=== PATIENT | female | born 1940 | race Caucasian/White ===

== ENCOUNTER 2020-07-27 05:36 | Inpatient (IN) | payer MEDICARE, OTHER ==
[~2020-07-27] VITALS: Ht 157.5 cm; Wt 76.1 kg
[2020-07-27] MEDS ORDERED: SIMV10TA21 PO (05:45)
[2020-07-27 06:32] LABS: BASO % 0.1 % (0.0-1.0); EOS # 0.1 10^3/uL (0.0-0.5); EOS % 1.1 % (0.0-3.0); HEMATOCRIT 46.1 % (36.0-47.0); HEMOGLOBIN 15.4 g/dl (12.0-15.5); LYMPH # 0.8 10^3/uL (1.5-5.0); MEAN CORPUSCULAR HEMOGLOBIN 30.3 pg (27.0-33.0); MEAN CORPUSCULAR HGB CONC 33.4 g/dl (32.0-36.5); MEAN CORPUSCULAR VOLUME 90.6 fl (80.0-96.0); MONO # 0.8 10^3/uL (0.0-0.8); MONO % 8.9 % (2.0-8.0); NEUTROPHILS # 6.8 10^3/uL (1.5-8.5); NEUTROPHILS % 80.7 % (36.0-66.0); PLATELET COUNT, AUTOMATED 486 10^3/uL (150-450); RED BLOOD COUNT 5.09 10^6/uL (4.00-5.40); WHITE BLOOD COUNT 8.5 10^3/uL (4.0-10.0)
[2020-07-27 07:25] LABS: ALBUMIN 3.6 GM/DL (3.2-5.2); ALT/SGPT 41 U/L (12-78); BILIRUBIN,DIRECT 0.2 MG/DL (0.0-0.2); BLOOD UREA NITROGEN 16 MG/DL (7-18); CARBON DIOXIDE LEVEL 24 MEQ/L (21-32); CHLORIDE LEVEL 110 MEQ/L (98-107); CK-MB VALUE MASS 1.4 NG/ML (<3.6); CPK CREATINE PHOSPHOKINASE 55 U/L (26-192); CREATININE FOR GFR 0.98 MG/DL (0.55-1.30); GLOMERULAR FILTRATION RATE 57.8 (>32); GLUCOSE, FASTING 119 MG/DL (70-100); LIPASE 81 U/L (73-393); MB/CK RELATIVE INDEX 2.55 (< OR =4); POTASSIUM SERUM 4.2 MEQ/L (3.5-5.1); SODIUM LEVEL 141 MEQ/L (136-145); TOTAL PROTEIN 6.5 GM/DL (6.4-8.2); TROPONIN I < 0.02 NG/ML (< 0.10)
[2020-07-27] MEDS ORDERED: ISOVUE-370 76% 100ML VIAL As Ordered ONE (07:30)
--- NOTE | 2020-07-27 08:16 | REPVR ---
PROCEDURE INFORMATION: Exam: CT Cervical Spine Without Contrast Exam date and time: 07/27/2020 8:00 AM Age: 80 years old Clinical indication: Injury or trauma; Fall; Concussion/head injury; Additional info: Loc/hit head TECHNIQUE: Imaging protocol: Computed tomography images of the cervical spine without contrast. Radiation optimization: All CT scans at this facility use at least one of these dose optimization techniques: automated exposure control; mA and/or kV adjustment per patient size (includes targeted exams where dose is matched to clinical indication); or iterative reconstruction. COMPARISON: No relevant prior studies available. FINDINGS: Bones/joints: No acute fracture. Minimal anterolisthesis of C2 on C3 and C4 on C5. Degenerative changes with anterior osteophyte formation, loss of disc spaces, and facet joint arthropathy. Schmorl node formation in the superior endplate of T1. Discs/Spinal canal/Neural foramina: No significant disc protrusion or central spinal canal stenosis. Lungs: Lung apices are normal. Soft tissues: Unremarkable. IMPRESSION: No acute findings. Electronically signed by: Trista Jimenez On 07/27/2020 08:15:36 AM
--- NOTE | 2020-07-27 08:18 | REPVR ---
PROCEDURE INFORMATION: Exam: CT Head Without Contrast Exam date and time: 07/27/2020 8:00 AM Age: 80 years old Clinical indication: Injury or trauma; Fall; Concussion/head injury; Additional info: Loc/hit head TECHNIQUE: Imaging protocol: Computed tomography of the head without contrast. Radiation optimization: All CT scans at this facility use at least one of these dose optimization techniques: automated exposure control; mA and/or kV adjustment per patient size (includes targeted exams where dose is matched to clinical indication); or iterative reconstruction. COMPARISON: No relevant prior studies available. FINDINGS: Brain: Normal. No hemorrhage. Unremarkable white matter. No mass effect. Cerebral ventricles: No ventriculomegaly. Bones/joints: Unremarkable. No acute fracture. Paranasal sinuses: Visualized sinuses are unremarkable. No fluid levels. Mastoid air cells: Visualized mastoid air cells are well aerated. Soft tissues: Mild left parietal soft tissue swelling. IMPRESSION: No intracranial abnormality. Mild left parietal soft tissue swelling. Electronically signed by: Trista Jimenez On 07/27/2020 08:18:09 AM
--- NOTE | 2020-07-27 08:33 | REPVR ---
PROCEDURE INFORMATION: Exam: CT Abdomen And Pelvis With Contrast Exam date and time: 07/27/2020 8:00 AM Age: 80 years old Clinical indication: Abdominal pain; Other: Llq pain TECHNIQUE: Imaging protocol: Computed tomography of the abdomen and pelvis with contrast. Radiation optimization: All CT scans at this facility use at least one of these dose optimization techniques: automated exposure control; mA and/or kV adjustment per patient size (includes targeted exams where dose is matched to clinical indication); or iterative reconstruction. Contrast material: ISOVUE 370; Contrast volume: 75 ml; Contrast route: INTRAVENOUS (IV); COMPARISON: No relevant prior studies available. FINDINGS: Limitations: Examination is limited by motion artifact. Lungs: Mild patchy areas of hyperattenuation in the lung bases. Coronary arteries: Mild coronary artery calcification. Liver: Normal. No mass. Gallbladder and bile ducts: Normal. No calcified stones. No ductal dilation. Pancreas: Normal. No ductal dilation. Spleen: Calcified granuloma in the spleen. Otherwise unremarkable. Adrenal glands: Normal. No mass. Kidneys and ureters: No right hydronephrosis. No left hydronephrosis. Mild left perinephric stranding. No obstructing renal stone. Benign-appearing cyst in the upper pole of right kidney measuring 7 mm. Multiple small hypodense lesions in left kidney measuring up to 3 mm. Stomach and bowel: Unremarkable. No obstruction. No mucosal thickening. Appendix: The appendix is not seen. However, there is no evidence of appendicitis. Intraperitoneal space: Unremarkable. No free air. No significant fluid collection. Vasculature: Mild atherosclerotic disease. No aortic aneurysm. Lymph nodes: Unremarkable. No enlarged lymph nodes. Urinary bladder: Unremarkable as visualized. Reproductive: Uterus is normal. Cyst in the right ovary measuring 4.2 x 4.9 x 5.0 cm. Bones/joints: Moderate degenerative spine. No acute fracture. Soft tissues: Unremarkable. IMPRESSION: 1. Left perinephric stranding without hydronephrosis. Possible recently passed stone versus pyelonephritis. 2. Cyst in the right ovary. Further evaluation with prompt non-emergent ultrasound is recommended to characterize. (Reference: Guicho) 3. Benign-appearing cyst in the upper pole of the right kidney. Multiple small hypodense lesions in the left kidney. No follow-up is necessary. 4. Mild patchy areas of hyperattenuation in the lung bases. Atelectasis versus mild pulmonary edema versus mild pneumonia. COMMENTS: Consistent with the [employer]'s Incidental Findings Committee white paper (J Am Jean Radiol 2018): Any incidental renal lesion less than 1 cm or classified as too small to characterize, or any incidental cystic renal lesion characterized as simple-appearing, is likely benign. No follow-up imaging is recommended for these lesions per consensus recommendations based on imaging criteria. REFERENCES: Guicho et al. Management of Incidental Adnexal Findings on CT and MRI: A White Paper of the ACR Incidental Findings Committee, J Am Jean Radiol. 2019;17(2):248-254. Electronically signed by: Kaitlin Kilgore On 07/27/2020 08:32:40 AM
--- NOTE | 2020-07-27 08:58 | ED PDOC ---
Post-Departure Follow-Up radiology report faxed to Clara Iverson MD July 27, 2020 08:58
[2020-07-27 09:19] LABS: NT-PRO BNP 173 PG/ML (<450)
[2020-07-27] MEDS ORDERED: MORPHINE 4 MG/ML 1ML VIAL/SYRINGE (J2270) IV ONE (09:50)
[2020-07-27] MEDS ORDERED: cefTRIAXone SOD 1 GM in D5W MINI-BAG PLUS 50 ML IV ONE (09:50)
[2020-07-27] MEDS ORDERED: NS 1,000 ML IV ONE (09:55)
--- NOTE | 2020-07-27 10:03 | REP ---
INDICATION: syncope. COMPARISON: None. FINDINGS: The superior mediastinal structures are midline. The cardiac silhouette is unremarkable in size, shape, and position. The diaphragmatic surfaces of the lungs are regular, and the costophrenic angles are clear. The pulmonary new are clear. The imaged osseous structures are intact. IMPRESSION: There is no acute cardiopulmonary disease. <Electronically signed by Kevin Schultz > 07/27/20 0959
--- NOTE | 2020-07-27 10:11 | ECGEPIP ---
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
[2020-07-27] MEDS ORDERED: OMEG10002 PO (10:22)
[2020-07-27] MEDS ORDERED: CALC600T60 PO (10:22)
[2020-07-27] MEDS ORDERED: D31000TA2 PO (10:22)
[2020-07-27] MEDS ORDERED: VITA500C24 PO (10:22)
[2020-07-27] MEDS ORDERED: ACETAMINOPHEN TAB 650MG DOSE (2X325MG) PO PRN (10:35)
[2020-07-27] MEDS ORDERED: MORPHINE 2 MG/ML 1ML VIAL (J2270) IV PRN (10:45)
--- NOTE | 2020-07-27 10:48 | HPEPDOC ---
General Date of Admission 07/27/20 Date of Service: July 27, 2020 Chief Complaint The patient is a 80-year-old female admitted with a reason for visit of General Med Complaint. Source: Patient Exam Limitations: No limitations Timing/Duration: 24 hours History of Present Illness Patient is 80 years old female with past medical history of hyperlipidemia, osteoporosis presents to the hospital with suprapubic pain and frequency in urin ation. Patient stated that yesterday she developed one episode of syncope without any seizure-like activities. She described she had some flashes and then syncopized for a few seconds. Yesterday evening she noticed frequency in urination with suprapubic pain. Patient denied fever, chills, nausea, vomiting diarrhea. In ER patient was found to have no leukocytosis, lactic acid 1.9. UA showed pyuria. CT showed Left perinephric stranding without hydronephrosis. Possible recently passed stone versus pyelonephritis Home Medications Scheduled Ascorbic Acid (Vitamin C) 500 Mg Capsule, 500 MG PO DAILY, (Reported) Calcium Carbonate (Calcium) 600 Mg Tablet, 600 MG PO DAILY, (Reported) Cholecalciferol (Vitamin D3) (Vitamin D3) 1,000 Unit Tablet, 1,000 UNITS PO DAILY, (Reported) [place]-3/Dha/Epa/Fish Oil (Fish Oil 1,000 mg Softgel) 1 Each Capsule, 1,000 MG PO DAILY, (Reported) Simvastatin (Simvastatin) 10 Mg Tablet, 10 MG PO QHS, (Reported) Allergies Coded Allergies: aspirin (Verified Allergy, Unknown, 07/27/20) Past Medical History Medical History Hyperlipidemia, osteoporosis Family History I personally reviewed family history and follow found not pertinent Social History * Smoker: Denies Alcohol: Denies Drugs: denies A-FIB/CHADSVASC A-FIB History Current/History of A-Fib/PAF?: No Current PO Anticoag Therapy: No Review of Systems Constitutional: Denies: Chills, Fever Eyes: Denies: Pain ENT: Denies: Head Aches Skin: Denies: Rash, Lesions Pulmonary: Denies: Dyspnea Cardiovascular: Denies: Chest Pain Gastrointestinal: Denies: Nausea, Vomiting Genitourinary: Reports: Dysuria, Frequency Hematologic: Denies: Bruising Endocrine: Denies: Polydipsia, Polyphagia Musculoskeletal: Denies: Neck Pain, Back Pain Neurological: Denies: Weakness Psych: Reports: Mood Normal Physical Examination General Exam: Positive: Alert, Cooperative Eye Exam: Positive: PERRLA ENT Exam: Positive: Atraumatic Neck Exam: Positive: Supple; Negative: JVD Chest Exam: Positive: Clear to auscultation Heart Exam: Positive: Rate Normal Abdomen Exam: Positive: Normal bowel sounds, Tenderness (suprapubic) Extremity Exam: Negative: Clubbing, Cyanosis Skin Exam: Positive: Nl turgor and temperature Neuro Exam: Positive: Normal Gait Psych Exam: Positive: Mental status NL Vital Signs Vital Signs Date Time Temp Pulse Resp B/P (MAP) Pulse Ox O2 Delivery O2 Flow Rate FiO2 07/27/20 10:11 16 07/27/20 09:05 98.1 81 163/83 (109) 98 Room Air Laboratory Data Labs 24H Laboratory Tests 2 07/27/20 06:17: Immature Granulocyte % (Auto) 0.2, Neutrophils (%) (Auto) 80.7H, Lymphocytes (%) (Auto) 9.0L, Monocytes (%) (Auto) 8.9H, Eosinophils (%) (Auto) 1.1, Basophils (%) (Auto) 0.1, Neutrophils # (Auto) 6.8, Lymphocytes # (Auto) 0.8L, Monocytes # (Auto) 0.8, Eosinophils # (Auto) 0.1, Basophils # (Auto) 0.0, Nucleated Red Blood Cells % (auto) 0.0, Urine Color YELLOW, Urine Appearance CLOUDYH, Urine pH 5.0, Urine Specific [place] 1.020, Urine Protein 1+H, Urine Glucose (UA) NEGATIVE, Urine Ketones NEGATIVE, Urine Blood 2+H, Urine Nitrite NEGATIVE, Urine Bilirubin NEGATIVE, Urine Urobilinogen 0.2, Urine Leukocyte Esterase 3+H, Urine WBC (Auto) TNTCH, Urine RBC (Auto) 107H, Urine Hyaline Casts (Auto) 0, Urine Bacteria (Auto) NEGATIVE, Urine Squamous Epithelial Cells 0, Urine Sperm (Auto) , Anion Gap 7L, Glomerular Filtration Rate 57.8, Lactic Acid Level 1.9, Calcium Level 9.0, Total Bilirubin 1.0, Direct Bilirubin 0.2, Aspartate Amino Transf (AST/SGOT) 30, Alanine Aminotransferase (ALT/SGPT) 41, Alkaline Phosphatase 74, Total Creatine Kinase 55, Creatine Kinase MB 1.4, Creatine Kinase MB Relative Index 2.55, Troponin I < 0.02, CV-Btd-L-Type Natriuretic Peptide 173, Total Protein 6.5, Albumin 3.6, Albumin/Globulin Ratio 1.2, Lipase 81 CBC/BMP Laboratory Tests 07/27/20 06:17 Microbiology Microbiology 07/27/20 Urine Culture, Received Pending Assessment/Plan Patient is 80 years old female with past medical history of hyperlipidemia, osteoporosis presents to the hospital with suprapubic pain and frequency in urination. Patient stated that yesterday she developed one episode of syncope without any seizure-like activities. She described she had some flashes and then syncopized for a few seconds. Yesterday evening she noticed frequency in ur ination with suprapubic pain. Patient denied fever, chills, nausea, vomiting diarrhea. In ER patient was found to have no leukocytosis, lactic acid 1.9. UA showed pyuria. CT showed Left perinephric stranding without hydronephrosis. Possible recently passed stone versus pyelonephritis Problems (1) UTI (urinary tract infection) Status: Acute Problem Text: UA showed pyuria Ceftriaxone IV Await blood culture, urine culture (2) Syncope Status: Acute Problem Text: Most likely vasovagal We'll check orthostatic vital signs CT head negative IV fluid Telemetry (3) Hyperlipidemia Status: Chronic Problem Text: Continue statin Plan / VTE VTE Prophylaxis Ordered?: Yes DALTON CENTENO DO July 27, 2020 10:48
[2020-07-27 11:23] LABS: RSV AMPLIFICATION NEGATIVE (NEGATIVE)
[2020-07-27] MEDS: NS 1,000 ML IV SCH (12:31)
[2020-07-27 13:20] VITALS: BP 142/64
[2020-07-27] MEDS: SIMVASTATIN 10 MG TAB PO SCH (20:15)
[2020-07-27 22:00] VITALS: BP 126/67
[2020-07-28] MEDS: NS 1,000 ML IV SCH ×2 (00:03→10:42)
[2020-07-28 06:00] VITALS: BP 128/68
[2020-07-28 06:36] LABS: HEMATOCRIT 39.9 % (36.0-47.0); HEMOGLOBIN 13.5 g/dl (12.0-15.5); MEAN CORPUSCULAR HEMOGLOBIN 30.5 pg (27.0-33.0); MEAN CORPUSCULAR HGB CONC 33.8 g/dl (32.0-36.5); MEAN CORPUSCULAR VOLUME 90.3 fl (80.0-96.0); RED BLOOD COUNT 4.42 10^6/uL (4.00-5.40); WHITE BLOOD COUNT 8.9 10^3/uL (4.0-10.0)
[2020-07-28 06:50] LABS: PLATELET COUNT, AUTOMATED 320 10^3/uL (150-450)
[2020-07-28 07:05] LABS: BLOOD UREA NITROGEN 10 MG/DL (7-18); CALCIUM LEVEL 8.6 MG/DL (8.8-10.2); CARBON DIOXIDE LEVEL 23 MEQ/L (21-32); CHLORIDE LEVEL 111 MEQ/L (98-107); CREATININE FOR GFR 0.79 MG/DL (0.55-1.30); GLOMERULAR FILTRATION RATE > 60.0 (>32); GLUCOSE, FASTING 92 MG/DL (70-100); POTASSIUM SERUM 3.8 MEQ/L (3.5-5.1); SODIUM LEVEL 140 MEQ/L (136-145)
[2020-07-28] MEDS: cefTRIAXone SOD 1 GM in D5W MINI-BAG PLUS 50 ML IV SCH (09:15)
[2020-07-28] MEDS: ENOXAPARIN 40MG/0.4ML SYRINGE (J1650 PER 10MG) SC SCH (09:18)
--- NOTE | 2020-07-28 11:38 | IPNPDOC ---
Text Note Date of Service The patient was seen on 07/28/20. NOTE Subjective: No any acute events overnight. Patient stated that she feels better today, no flank pain, no suprapubic pain Objective: GENERAL APPEARANCE: NAD HEENT: no scleral icterus, no JVD, EOMI CARDIOVASCULAR: S1S2 LUNGS: CTA ABDOMEN: soft & not tender w palpitation MUSCULOSKELETAL: no cyanosis, no swelling INTEGUMENT: no generalized pallor NEUROLOGICAL: cranial nerve function from 2-12 intact intact, follows commands, speech not dysarthric Assessment/Plan Patient is 80 years old female with past medical history of hyperlipidemia, osteoporosis presents to the hospital with suprapubic pain and frequency in urination. Patient stated that yesterday she developed one episode of syncope without any seizure-like activities. She described she had some flashes and then syncopized for a few seconds. Yesterday evening she noticed frequency in urination with suprapubic pain. Patient denied fever, chills, nausea, vomiting diarrhea. In ER patient was found to have no leukocytosis, lactic acid 1.9. UA showed pyuria. CT showed Left perinephric stranding without hydronephrosis. Possible recently passed stone versus pyelonephritis Problems (1) UTI (urinary tract infection) UA showed pyuria Continue Ceftriaxone IV day 2 blood culture negative, await urine culture (2) Syncope Most likely vasovagal CT head negative IV fluid Telemetry (3) Hyperlipidemia Continue statin VS,Fishbone, I+O VS, Fishbone, I+O Laboratory Tests 07/28/20 06:15 Vital Signs Date Time Temp Pulse Resp B/P (MAP) Pulse Ox O2 Delivery O2 Flow Rate FiO2 07/28/20 06:00 98.3 83 18 128/68 (88) 95 Room Air I&O- Last 24 Hours up to 6 AM 07/28/20 06:00 Intake Total 2970 ml Output Total 400 ml Balance 2570 ml DALTON CENTENO DO July 28, 2020 11:38
[2020-07-28 14:00] VITALS: BP 151/74
[2020-07-28] MEDS: SIMVASTATIN 10 MG TAB PO SCH (20:16)
[2020-07-28 22:00] VITALS: BP 152/75
[2020-07-29 06:00] VITALS: BP 149/76
[2020-07-29] MEDS: ENOXAPARIN 40MG/0.4ML SYRINGE (J1650 PER 10MG) SC SCH (08:55)
[2020-07-29] MEDS: cefTRIAXone SOD 1 GM in D5W MINI-BAG PLUS 50 ML IV SCH (08:59)
[2020-07-29] MEDS ORDERED: AMPI500C9 PO (10:43)
--- NOTE | 2020-07-29 18:57 | DS.PDOC ---
Discharge Summary General Date of Admission July 27, 2020 at 10:32 Date of Discharge 07/29/20 Discharge Summary PROCEDURES PERFORMED DURING STAY: [None]. ADMITTING DIAGNOSES: UTI (urinary tract infection) Syncope Hyperlipidemia DISCHARGE DIAGNOSES: UTI (urinary tract infection) Syncope Hyperlipidemia COMPLICATIONS/CHIEF COMPLAINT: Syncope & Urinary Tract Infection. HISTORY OF PRESENT ILLNESS: Patient is 80 years old female with past medical history of hyperlipidemia, osteoporosis presents to the hospital with suprapubic pain and frequency in urination. Patient stated that yesterday she developed one episode of syncope without any seizure-like activities. She described she had some flashes and then syncopized for a few seconds. Yesterday evening she noticed frequency in urination with suprapubic pain. Patient denied fever, chills, nausea, vomiting diarrhea. In ER patient was found to have no leukocytosis, lactic acid 1.9. UA showed pyuria. CT showed Left perinephric stranding without hydronephrosis. Possible recently passed stone versus pyel onephritis HOSPITAL COURSE: During hospital stay following issues addressed (1) UTI (urinary tract infection) UA showed pyuria Patient received treatment with Ceftriaxone IV blood culture negative, await urine culture (2) Syncope Most likely vasovagal CT head negative IV fluid Telemetry DISCHARGE MEDICATIONS: Please see below. ALLERGIES: Please see below. PHYSICAL EXAMINATION ON DISCHARGE: VITAL SIGNS: Please see below. GENERAL APPEARANCE: NAD HEENT: no scleral icterus, no JVD, EOMI CARDIOVASCULAR: S1S2 LUNGS: CTA ABDOMEN: soft & not tender w palpitation MUSCULOSKELETAL: no cyanosis, no swelling INTEGUMENT: no generalized pallor NEUROLOGICAL: cranial nerve function from 2-12 intact intact, follows commands, speech not dysarthric LABORATORY DATA: Please see below. IMAGING: [facility] NAME: PAUL MIRAMONTES DATE OF : 1940 BUSINESS NUMBER: [id number] AGE: 80 SEX: F REPORT #: [id number] ROOM: M ED TECHNOLOGIST: TOMAS DOCTOR: SETH VILLATORO PA-C Ordered for Date&Time: 07/27/20 0653 cc: [~ rep ct ivnm] Service Date&Time: 07/27/20 0800 This report is in Signed status. Interpretation performed by [facility]. Thank you for having your radiology procedures performed at [facility] RADIOLOGY REPORT Date&Time printed: [~ rep prt dt last] [~ rep prt tm last] Page 3 of 3 [place] [id number] RADIOLOGY REPORT This report is in Signed status. Interpretation performed by [facility]. Thank you for having your radiology procedures performed at [facility] RADIOLOGY REPORT Date&Time printed: [~ rep prt dt last] [~ rep prt tm last] Page 1 of 3 NAME: PAUL MIRAMONTES DATE OF : 1940 BUSINESS NUMBER: [id number] AGE: 80 SEX: F REPORT #: [id number] ROOM: ED TECHNOLOG[facility] DOCTOR: SETH VILLATORO PA-C Ordered for Date&Time: 07/27/20 0653 cc: [~ rep ct ivnm] Service Date&Time: 07/27/20 0800 EXAMINATION REQUESTED: CT ABD/PEL W/IV CONTRAST ONLY REASON FOR PATIENT VISIT: GENERAL MED COMPLAINT REASON FOR EXAMINATION: llq pain PROCEDURE INFORMATION: Exam: CT Abdomen And Pelvis With Contrast Exam date and time: 07/27/2020 8:00 AM Age: 80 years old Clinical indication: Abdominal pain; Other: Llq pain TECHNIQUE: Imaging protocol: Computed tomography of the abdomen and pelvis with contrast. Radiation optimization: All CT scans at this facility use at least one of these dose optimization techniques: automated exposure control; mA and/or kV adjustment per patient size (includes targeted exams where dose is matched to clinical indication); or iterative reconstruction. Contrast material: ISOVUE 370; Contrast volume: 75 ml; Contrast route: INTRAVENOUS (IV); COMPARISON: No relevant prior studies available. FINDINGS: Limitations: Examination is limited by motion artifact. Lungs: Mild patchy areas of hyperattenuation in the lung bases. Coronary arteries: Mild coronary artery calcification. Liver: Normal. No mass. Gallbladder and bile ducts: Normal. No calcified stones. No ductal dilation. Pancreas: Normal. No ductal dilation. Spleen: Calcified granuloma in the spleen. Otherwise unremarkable. Adrenal glands: Normal. No mass. Kidneys and ureters: No right hydronephrosis. No left hydronephrosis. Mild left perinephric stranding. No obstructing renal stone. Benign-appearing cyst in the upper pole of right kidney measuring 7 mm. Multiple small hypodense lesions in left kidney measuring up to 3 mm. Stomach and bowel: Unremarkable. No obstruction. No mucosal thickening. Appendix: The appendix is not seen. However, there is no evidence of appendicitis. Intraperitoneal space: Unremarkable. No free air. No significant fluid collection. Vasculature: Mild atherosclerotic disease. No aortic aneurysm. Lymph nodes: Unremarkable. No enlarged lymph nodes. Urinary bladder: Unremarkable as visualized. Reproductive: Uterus is normal. Cyst in the right ovary measuring 4.2 x 4.9 x 5.0 cm. Bones/joints: Moderate degenerative spine. No acute fracture. Soft tissues: Unremarkable. IMPRESSION: 1. Left perinephric stranding without hydronephrosis. Possible recently passed stone versus pyelonephritis. 2. Cyst in the right ovary. Further evaluation with prompt non-emergent ultrasound is recommended to characterize. (Reference: Guicho) 3. Benign-appearing cyst in the upper pole of the right kidney. Multiple small hypodense lesions in the left kidney. No follow-up is necessary. 4. Mild patchy areas of hyperattenuation in the lung bases. Atelectasis versus mild pulmonary edema versus mild pneumonia. COMMENTS: Consistent with the [employer]'s Incidental Findings Committee white paper (J Am Jean Radiol 2018): Any incidental renal lesion less than 1 cm or classified as too small to characterize, or any incidental cystic renal lesion characterized as simple-appearing, is likely benign. No follow-up imaging is recommended for these lesions per consensus recommendations based on imaging criteria. REFERENCES: Guicho et al. Management of Incidental Adnexal Findings on CT and MRI: A White Paper of the ACR Incidental Findings Committee, J Am Jean Radiol. 2019;17(2):248-254. Electronically signed by: Darlyn Kilgore On 07/27/2020 08:32:40 AM DD: DARLYN KILGORE MD 07/27/20 08 DT: NORRIS 07/27/20831 DS: PRATIK 07/27/20831 [~ rep ct labl] PROGNOSIS: Fair ACTIVITY: [As tolerated]. DIET: Cardiac DISPOSITION: 01 Home, Self-Care. ITEMS TO FOLLOWUP ON ON OUTPATIENT: f/u PCP DISCHARGE CONDITION: [Stable]. TIME SPENT ON DISCHARGE: 40 minutes. Vital Signs/I&Os Vital Signs Date Time Temp Pulse Resp B/P (MAP) Pulse Ox O2 Delivery O2 Flow Rate FiO2 07/29/20 06:00 98.3 85 18 149/76 (100) 96 07/28/20 14:00 Room Air I&O- Last 24 Hours up to 6 AM 07/29/20 06:00 Intake Total 1380 ml Output Total 1450 ml Balance -70 ml Microbiology Microbiology 07/27/20 Blood Culture - Preliminary, Resulted No Growth after 48 hours. All Specime... 07/27/20 Blood Culture - Preliminary, Resulted No Growth after 48 hours. All Specime... 07/27/20 Urine Culture - Final, Complete Proteus Mirabilis Discharge Medications Scheduled Ampicillin Trihydrate (Ampicillin Trihydrate) 500 Mg Capsule, 500 MG PO TID Ascorbic Acid (Vitamin C) 500 Mg Capsule, 500 MG PO DAILY, (Reported) Calcium Carbonate (Calcium) 600 Mg Tablet, 600 MG PO DAILY, (Reported) Cholecalciferol (Vitamin D3) (Vitamin D3) 1,000 Unit Tablet, 1,000 UNITS PO DAILY, (Reported) [place]-3/Dha/Epa/Fish Oil (Fish Oil 1,000 mg Softgel) 1 Each Capsule, 1,000 MG PO DAILY, (Reported) Simvastatin (Simvastatin) 10 Mg Tablet, 10 MG PO QHS, (Reported) Allergies Coded Allergies: aspirin (Verified Allergy, Unknown, 07/27/20) DALTON CENTENO DO July 29, 2020 18:57
== END 2020-07-29 11:05 | disposition home or self-care (01) | DRG 690 ==
LOC: M ED 05:36 → EDBD 05:36 → M ED INP 10:32 → M MSPAV 13:21
PROVIDERS: ADMIT Internal Medicine; ATTEND Internal Medicine
DX: N39.0 Urinary tract infection, site not specified (principal); E78.5 Hyperlipidemia, unspecified; R55 Syncope and collapse; M81.0 Age-related osteoporosis without current pathological fracture; Z88.6 Allergy status to analgesic agent; Z79.899 Other long term (current) drug therapy